=== PATIENT | male | born 1990 | race Caucasian/White ===

== ENCOUNTER 2018-02-10 04:18 | Emergency (ER) | payer OTHER ==
[~2018-02-10] VITALS: Ht 175.3 cm; Wt 102.1 kg
--- NOTE | ~2018-02-10 | EKG ---
[address] [address] ELECTROCARDIOGRAM REPORT Name: BHUPINDER SEGOVIA Room #: [facility] Cal[place]#: [id number] Admission: 02/10/18 Attend Phys: Discharge: 02/10/18 Date of : [birth year] Report #: [id number] THIS REPORT FOR: //name// [facility] ED Test Date: 2018-02-10 Test Time: 04:29:14 Pat Name: BHUPINDER SEGOVIA Department: Room: Gender: Docent Coordinator: MERLENE : 1990 Requested By: Soledad Douglas Order Number: [id number] MD: Atul Burnett Measurements Intervals [place] Rate: 96 P: 25 NC: 148 QRS: 143 QRSD: 98 T: 10 QT: 355 QTc: 449 Interpretive Statements Sinus rhythm No previous ECG available for comparison Electronically Signed On 02-10-2018 12:13:56 CDT by Atul Burnett [email or web address] <ELECTRONICALLY SIGNED> By: Atul Burnett MD 02/10/18 1213 0429 0429 Atul Burnett MD /EPI
[2018-02-10] MEDS ORDERED: NOHOMEMEDICATIONS (04:25)
[2018-02-10 04:44] LABS: ABSOLUTE NEUTROPHILS 4.9 thou/uL (1.4-8.2); BASOPHILS 0.9 % (0.0-2.0); HEMATOCRIT 44.5 % (42.0-52.0); LYMPHOCYTES 29.3 % (24.0-44.0); MCH 29.3 pg (26.0-34.0); MCHC 33.7 g/dL (28.0-37.0); MCV 87.1 fL (80.0-100.0); MONOCYTES 11.8 % (1.0-8.0); PLATELET COUNT 324 thou/uL (150-400); RBC 5.11 mil/uL (4.50-6.00); RDW 13.6 % (10.5-14.5)
[2018-02-10 04:51] LABS: ANION GAP 8 mmol/L (7-16); BUN 10 mg/dL (7-18); CALCIUM 9.4 mg/dL (8.5-10.1); CHLORIDE 106 mmol/L (98-107); CO2 25 mmol/L (21-32); GLUCOSE 104 mg/dL (74-106); POTASSIUM 3.8 mmol/L (3.5-5.1); SODIUM 139 mmol/L (136-145)
[2018-02-10 05:00] LABS: TROPONIN-I < 0.04 ng/mL (<0.06)
[2018-02-10 07:47] LABS: AMP/METHAMP Negative (Negative); BARBITURATES Negative (Negative); BENZODIAZEPINES Negative (Negative); COCAINE POSITIVE (Negative); METHADONE Negative (Negative); OPIATES Negative (Negative); PCP Negative (Negative)
[2018-02-10 08:19] VITALS: BP 124/78
== END 2018-02-10 08:20 | disposition home or self-care (01) ==
LOC: ER 04:18
PROVIDERS: Emergency Medicine
DX: R07.9 Chest pain, unspecified (principal); F14.10 Cocaine abuse, uncomplicated

== ENCOUNTER 2021-08-18 18:56 | Emergency (ER) | payer OTHER ==
[~2021-08-18] VITALS: Ht 175.3 cm; Wt 81.7 kg
[~2021-08-18 18:56] MED LIST: NOHOMEMEDICATIONS
[2021-08-18 19:34] LABS: ABSOLUTE NEUTROPHILS 5.5 thou/uL (1.4-8.2); BASOPHILS 0.8 % (0.0-2.0); EOSINOPHILS 3.8 % (0.0-3.0); HEMATOCRIT 45.4 % (42.0-52.0); HEMOGLOBIN 15.2 gm/dL (14.0-18.0); LYMPHOCYTES 30.6 % (24.0-44.0); MCH 29.1 pg (26.0-34.0); MCHC 33.5 g/dL (28.0-37.0); MCV 86.8 fL (80.0-100.0); MONOCYTES 8.8 % (1.0-8.0); PLATELET COUNT 397 thou/uL (150-400); RBC 5.23 mil/uL (4.50-6.00); RDW 13.5 % (10.5-14.5); WBC 9.8 thou/uL (4.0-11.0)
[2021-08-18 19:41] LABS: ANION GAP 9 mmol/L (7-16); BUN 11 mg/dL (7-18); CHLORIDE 106 mmol/L (98-107); CO2 26 mmol/L (21-32); CREATININE 1.1 mg/dL (0.7-1.3); GLUCOSE 100 mg/dL (74-106); POTASSIUM 3.9 mmol/L (3.5-5.1); SODIUM 141 mmol/L (136-145)
[2021-08-18 22:11] VITALS: BP 139/93
--- NOTE | 2021-08-19 07:24 | EKG ---
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: CAIN : 1990 Requested By: Marcio Garay Order Number: [id number] MD: Toni Mason Measurements Intervals [place] Rate: 112 P: 18 DE: 132 QRS: 189 QRSD: 92 T: 7 QT: 319 QTc: 436 Interpretive Statements Sinus tachycardia Right axis deviation Compared to ECG 02/10/2018 04:29:14 Right-axis deviation now present Sinus rhythm no longer present Electronically Signed On 08-19-2021 7:23:54 CDT by Toni Mason [email or web address] <ELECTRONICALLY SIGNED> By: Toni Mason MD, [facility] 08/19/21 0723 190 190 Toni Mason MD, FACC /EPI
== END 2021-08-18 22:13 | disposition home or self-care (01) ==
LOC: ER 18:56
PROVIDERS: Nurse Practitioner
DX: F14.10 Cocaine abuse, uncomplicated (principal); R07.89 Other chest pain; F17.210 Nicotine dependence, cigarettes, uncomplicated; E07.89 Other specified disorders of thyroid

== ENCOUNTER → 2021-09-06 | Outpatient (CLI) | payer OTHER | LOC: SJCVCIMAG 08:07 | PROVIDERS: ATTEND Internal Medicine Cardiovascular Disease | DX: R07.9 Chest pain, unspecified (principal); F19.10 Other psychoactive substance abuse, uncomplicated; Z82.49 Family history of ischemic heart disease and other diseases of the circulatory system ==